=== PATIENT | female | born 1965 | race Asian ===

== ENCOUNTER 2020-01-19 14:45 | Emergency (ER) | payer OTHER ==
[~2020-01-19] VITALS: Ht 160 cm; Wt 53.6 kg
[2020-01-19 15:01] VITALS: BP 108/68
[2020-01-19] MEDS ORDERED: IV NORMAL SALINE 1,000ML 1,000 ML IV SCH (15:05)
--- NOTE | 2020-01-19 15:11 | PHYS DOC ---
Past History Past Medical History: No Pertinent History Adult General Chief Complaint Chief Complaint: ABDOMINAL PAIN HPI HPI Patient is a 54-year-old female who presents by way of PCP office for abdominal pain. Onset was 3 days ago without any known inciting event or trauma. She has not tried anything to alleviate pain. P.o. intake makes worse. Pain is generalized around umbilical area with mild radiation to bilateral flanks, she rates it a 4/10 in severity. Pain is been constant since onset. Associated symptoms include rhinorrhea which she contributes to seasonal allergies, decreased p.o. intake and nausea. Patient denies any fever, headache, syncope, falls, chest pain, shortness of breath, urinary symptoms, constipation or diarrhea, no vaginal irritation and dysuria bleeding or discharge, no known COVID-19 contacts, no recent travel. Patient has history of seasonal allergies, no other known medical diagnoses. She does not take any medication on a daily basis. She has never had abdominal surgery Review of Systems Review of Systems Fourteen body systems of review of systems have been reviewed. See HPI for pertinent positives and negative responses, other mcdaniel all other systems are negative, non-pertinent or non-contributory Physical Exam Physical Exam Constitutional: Well developed, well nourished, no acute distress, non-toxic appearance. HENT: Normocephalic, atraumatic, bilateral external ears normal, oropharynx moist, no oral exudates, nose normal. Eyes: PERRLA, EOMI, conjunctiva normal, no discharge. Neck: Normal range of motion, no tenderness, supple, no stridor. Cardiovascular: Heart rate regular, sinus rhythm, no murmurs rubs or gallops Lungs & Thorax: Bilateral breath sounds clear to auscultation Abdomen: Bowel sounds normal, soft, generalized abdominal tenderness to palpation, negative Fisher/Rovsing/McBurney/psoas/obturator signs, no masses, pulsatile midline mass in thin patient present without bruit. Nonsurgical abdomen, no peritoneal signs Skin: Warm, dry, no erythema, no rash. Back: No tenderness, no CVA tenderness. Extremities: No tenderness, no cyanosis, no clubbing, ROM intact, no edema. Neurologic: Alert and oriented X 3, grossly normal motor & sensory function, no focal deficits noted. Psychologic: Affect normal, judgement normal, mood normal. EKG EKG EKG ordered and interpreted by myself at 1550 hrs. as sinus rhythm at 59 bpm, unremarkable intervals, no axis deviation, no acute ischemic findings, no STEMI Radiology/Procedures Radiology/Procedures PROCEDURE: PORTABLE CHEST 1V Single AP view of the chest. Comparison: None. Indication: Left flank pain Findings: The heart is not enlarged. There is no pneumothorax or effusion. No air space or interstitial disease. Impression: 1. No acute cardiopulmonary process. Electronically signed by: Tramaine Neil MD (01/19/2020 3:55 PM) [id number] PROCEDURE: CT ABD PELV W/ IV CONTRST ONLY Exam: CT of abdomen and pelvis with contrast INDICATION: Left lower quadrant pain TECHNIQUE: Sequential axial images through the abdomen and pelvis obtained following the administration of 75 mL of Isovue-370 IV contrast. Sagittal and coronal reformatted images were reconstructed from the axial data and reviewed. Comparisons: None FINDINGS: Heart size is normal. No pericardial effusion. Visualized lung bases are clear. No pleural effusion. Liver, spleen, pancreas, gallbladder and adrenals are unremarkable. There is mild left-sided hydronephrosis. No obstructing stone or lesion is identified. No renal or ureteral calculi are identified. Bladder is decompressed not well evaluated. Uterus is not enlarged. No abnormal adnexal mass. Large and small bowel are unremarkable. Appendix is not identified. No free abdominal air or fluid. No obstruction. Abdominal aorta has a normal course and caliber. Abdominal vasculature is patent. No enlarged intra-abdominal lymph nodes identified. No suspicious osseous lesions or acute fractures. IMPRESSION: Mild left-sided hydronephrosis without an obstructing stone or lesion identified. Correlate for stricture. Exposure: One or more of the following in the visualized dose reduction techniques were utilized for this examination: 1. Automated exposure control 2. Adjustment of the MA and/or KV according to patient size 3. Use of iterative of reconstructive technique Electronically signed by: Jossie Barragan MD (01/19/2020 4:00 PM) [id number] Course & Med Decision Making Course & Med Decision Making Ambulatory well-appearing patient seen on immediate ER arrival ABCs unremarkable Comprehensive history and physical exam obtained without any concern for any emergent or immediate surgical intervention. Subsequent diagnostic studies ordered IV access obtained, 1 L IV normal saline administered Patient reassessed several times throughout ER stay with stable, tolerable abdominal discomfort. ER course reviewed at length, reviewed clinical findings in addition to diagnostic studies. Discussed labs and imaging studies with mention of left hydronephrosis with possible stricture I discussed most likely cause of patient's presenting symptoms is self-limiting in nature not requiring any further intervention beyond Tylenol for pain control and continued supportive care I discussed this may be an acute presentation of more concerning pathology and so, I advised patient to follow-up with PCP in upcoming 1 week for repeat abdominal exam and consideration for specialist consultation for suspect GI/ stricture At this time in care, as patient is asymptomatic well-appearing and tolerating p.o. without difficulties, joint decision to discharge home in stable condition with continued supportive care advised. Strict return precautions discussed at length with good understanding by patient, all questions and concerns addressed prior to ER departure Jagdish Disclaimer Jagdish Disclaimer This electronic medical record was generated, in whole or in part, using a voice recognition dictation system. The HEART Score for CP Pts HEART Score for Chest Pain: HEART Score for Chest Pain Response (Comments) Value History Slighlty/Non-Suspicious 0 ECG Normal 0 Age >45 - < 65 1 Risk Factors No Risk Factors 0 Troponin < Normal Limit 0 Total 1 Risk Factors: Risk Factors: DM, Current or recent (<one month) smoker, HTN, HLP, family history of CAD, obesity. Risk Scores: Score 0 - 3: 2.5% MACE over next 6 weeks - Discharge Home Score 4 - 6: 20.3% MACE over next 6 weeks - Admit for Clinical Observation Score 7 - 10: 72.7% MACE over next 6 weeks - Early Invasive Strategies Departure Departure: Impression: Primary Impression: Abdominal pain Disposition: HOME/RESIDENCE PRIOR TO ADM Condition: STABLE Patient Instructions: Abdominal Pain (Nonspecific) Additional Instructions: You have been evaluated in the Emergency Department today for abdominal pain. Your evaluation was not suggestive of any emergent condition requiring medical intervention at this time. However, some abdominal problems make take more time to appear. Therefore, it is important for you to watch for any new symptoms or worsening of your current condition. As discussed prior to ER departure, please follow-up with your primary care physician in upcoming 1 to 9 days for outpatient follow-up. I would like you to have repeat abdominal exam. If you continue to be symptomatic, please discuss potential referral to a specialist for a suspect GI/ stricture Return to the Emergency Department if you experience worsening pain, persistent fevers greater than 100.4, recurrent vomiting, blood in vomit, blood in stool, dark tarry stool, chest pain, difficulty breathing, or any other concerning symptoms. Justification of Admission: Justification of Admission: Justification of Admission Dx: N/A TASH HUANG DO Jan 19, 2020 15:11
[2020-01-19] MEDS ORDERED: IOHEXOL 300 MG/ML 75 ML VIAL. IV ONE (15:15)
[2020-01-19] MEDS ORDERED: LIDO:MAALOX 1:1 20 ML SINGLE DOSE. PO ONE (15:30)
[2020-01-19 15:42] LABS: BASO % 1 % (0-3); EOS # 0.1 x10^3/uL (0.0-0.7); EOS % 2 % (0-3); HEMATOCRIT 42.3 % (36.0-47.0); LYMPH # 2.1 x10^3/uL (1.0-4.8); LYMPH % 34 % (24-48); MEAN CORPUSCULAR HEMOGLOBIN 31 pg (25-35); MEAN CORPUSCULAR HGB CONC 33 g/dL (31-37); MEAN CORPUSCULAR VOLUME 93 fL (79-100); MONO # 0.5 x10^3/uL (0.0-1.1); MONO % 7 % (0-9); NEUT # 3.6 x10^3uL (1.8-7.7); NEUT % 57 % (31-73); PLATELET COUNT 231 x10^3/uL (140-400); RED BLOOD COUNT 4.56 x10^6/uL (3.50-5.40); WHITE BLOOD COUNT 6.3 x10^3/uL (4.0-11.0)
[2020-01-19 15:49] LABS: CALCIUM 9.4 mg/dL (8.5-10.1); CREATININE 0.7 mg/dL (0.6-1.0); GFR 86.9; POTASSIUM 3.8 mmol/L (3.5-5.1)
[2020-01-19 15:55] LABS: ALBUMIN 3.8 g/dL (3.4-5.0); TOTAL BILIRUBIN 0.4 mg/dL (0.2-1.0); TOTAL PROTEIN 7.5 g/dL (6.4-8.2)
--- NOTE | 2020-01-19 15:57 | RAD ---
Single AP view of the chest. Comparison: None. Indication: Left flank pain Findings: The heart is not enlarged. There is no pneumothorax or effusion. No air space or interstitial disease. Impression: 1. No acute cardiopulmonary process. Electronically signed by: Tramaine Neil MD (01/19/2020 3:55 PM) [id number]
--- NOTE | 2020-01-19 16:04 | RAD ---
Exam: CT of abdomen and pelvis with contrast INDICATION: Left lower quadrant pain TECHNIQUE: Sequential axial images through the abdomen and pelvis obtained following the administration of 75 mL of Isovue-370 IV contrast. Sagittal and coronal reformatted images were reconstructed from the axial data and reviewed. Comparisons: None FINDINGS: Heart size is normal. No pericardial effusion. Visualized lung bases are clear. No pleural effusion. Liver, spleen, pancreas, gallbladder and adrenals are unremarkable. There is mild left-sided hydronephrosis. No obstructing stone or lesion is identified. No renal or ureteral calculi are identified. Bladder is decompressed not well evaluated. Uterus is not enlarged. No abnormal adnexal mass. Large and small bowel are unremarkable. Appendix is not identified. No free abdominal air or fluid. No obstruction. Abdominal aorta has a normal course and caliber. Abdominal vasculature is patent. No enlarged intra-abdominal lymph nodes identified. No suspicious osseous lesions or acute fractures. IMPRESSION: Mild left-sided hydronephrosis without an obstructing stone or lesion identified. Correlate for stricture. Exposure: One or more of the following in the visualized dose reduction techniques were utilized for this examination: 1. Automated exposure control 2. Adjustment of the MA and/or KV according to patient size 3. Use of iterative of reconstructive technique Electronically signed by: Jossie Barragan MD (01/19/2020 4:00 PM) [id number]
--- NOTE | 2020-01-19 16:14 | EKG ---
[address] [address] Test Date: 2020-01-19 Test Time: 15:29:12 Pat Name: NATE STONE Department: Room: Gender: F Scheduling Representative: : [id number] Requested By: TASH HUANG Order Number: [id number] Reading MD: Measurements Intervals [place] Rate: 59 P: 42 WA: 160 QRS: 35 QRSD: 86 T: 50 QT: 470 QTc: 470 Interpretive Statements SINUS RHYTHM NO SPECIFIC ECG ABNORMALITIES RI6.02 No previous ECG available for comparison
[2020-01-19 16:56] LABS: BILIRUBIN,URINE NEG (NEG); CLARITY,URINE CLEAR; COLOR,URINE STRAW; GLUCOSE,URINE NEG (NEG)
[2020-01-19 16:57] LABS: BACTERIA,URINE 0 /HPF (0-FEW); NITRITE,URINE NEG (NEG); RBC,URINE 0 /HPF (0-2); UROBILINOGEN,URINE 0.2 mg/dL (0.2 mg/dL); WBC,URINE RARE /HPF (0-4)
== END 2020-01-19 17:35 | disposition home or self-care (01) ==
LOC: ER 14:45
DX: R10.84 Generalized abdominal pain (principal); R10.33 Periumbilical pain
CPT/HCPCS: 36415; 71045; 74177; 80053; 81001; 83690; 84484; 85025; 93005; 96360; 96361; 99285; J7030; Q9967